=== PATIENT | male | born 1945 | race Caucasian/White ===

== ENCOUNTER 2019-07-27 06:59 | Outpatient (CLI) | payer MEDICARE, SELFPAY ==
--- NOTE | 2019-07-27 09:15 | DI.NM_ITS ---
APPROVED REPORT Exam: Pharmacologic Patient Location: Out-Patient Room/Bed: Stress Nurse: Ebony Harris RN BMI: 28.18 Indications: Patient unable to state why he is here for stress test today?my doctor told me to?? ?. Patient???s order reads NSTEMI and CHF as reason for exam. Of note patient has recently been in [facility] for approximately 8 days for pneumonia. Patient is a poor historian. Medical History Cardiac Medications: Aspirin, Atorvastatin, Metoprolol Tartrate. Allergies: No known drug allergies Cardiac Risk Factors: HTN, Hyperlipidemia,, Diabetes (insulin) Previous Cardiac Procedures: None Exercise History: Sedentary Physical Disabilities: Legs, Back Lung Sounds: Crackles in bases bilaterally and patient reports SOB. Heart Sounds: Regular Stress Test Details Test: Pharmacologic stress testing performed using 0.4 mg of regadenoson per 5 mL given IV over 10 s econds. Reason for pharmacologic stress test: physical limitation. Nuclear Acquisition: Stress Tc-99m/Stress Tc-99m 1 day Rest Isotope: Tc-99m Sestamibi. Dose: 11.0 Date: 07/27/2019 Injection Time: 0845 Stress Isotope: Tc-99m Sestamibi. Dose: 34.0 Date: 07/27/2019 Injection Time: 1012 HR Resting HR Supine: 106 bpm Max Heart Rate (APMHR): 145 bpm Target HR (85% APMHR): 123 bpm Max HR Achieved: 129 bpm % of APMHR: 88 BP Resting BP Supine: 134/88 mmHg Max BP: 134/88 mmHg ECG Resting ECG: Sinus Tachycardia Ectopy: none Comment: T wave flattening and inversions in the anterolateral leads. Stress ECG: Sinus Tachycardia ST Change: Normal Maximum ST Deviation: 1 mm Arrhythmia: Recurrent PVCs, bigeminy Recovery ECG: Sinus Rhythm Recovery ST Change: Normal Recovery Arrhythmia: VPC Clinical Stress Symptoms: Patient denied symptoms pre and post Lexiscan injection. Stress ECG Conclusion 1. The patient developed frequent PVCs and bigeminy which lasted into recovery. 2. ECG was nondiagnostic as there were T wave inversions at baseline. Protocol Used: Regadenoson Stress Test Summary STAGE HR BP Symptoms NOTES Supine 106 134/88 1 min post Lexiscan injection 114 110/40 3 min post Lexiscan injection 117 102/50 6 min post Lexiscan injection 121 106/50 9 min post Lexiscan injection 124 104/60 12 min post Lexiscan injection 122 100/60 15 min post Lexiscan injection 117 110/50 MPI Conclusion This MPI test was nondiagnostic as patient was unable to complete stress imaging. Rest imaging showed no evidence of infarct. Radiologist Interpretation Radiologist Interpretation by: Sudarshan Rodriguez MD Interpretation Date/Time: 07/27/2019 15:24:49
[2019-07-27] MEDS: Regadenoson 0.4 MG/5 ML SYR IVP (10:46)
== END 2019-07-27 07:19 ==
PROVIDERS: PCP Internal Medicine; Visit Provider Family Medicine
DX: R07.9 Chest pain, unspecified (principal); I25.2 Old myocardial infarction; I50.9 Heart failure, unspecified; I49.3 Ventricular premature depolarization; I10 Essential (primary) hypertension; E78.5 Hyperlipidemia, unspecified
CPT/HCPCS: 93016; 93018; 78451; 93017; J2785

== ENCOUNTER 2023-03-05 12:55 | Day surgery (SDC) | payer MEDICARE, SELFPAY ==
[2023-03-05 13:22] VITALS: BP 136/40; PULSE 66; RESP 16; TEMP 36.8; O2SAT 98
[2023-03-05] MEDS: Tropicam./Phenyleph. (1/2.5%) 5 ML BTL OS ×3 (13:29→13:45)
--- NOTE | 2023-03-05 13:30 | W.ANESPRE ---
General Info Date of Service Date Performed: 03/05/23 Height: 5 ft 7 in Weight: 82.554 kg Body Mass Index (BMI): 28.5 Surgical Procedure: Operation Date: 03/05/23 14:25 Proposed Procedure Side Surgeon p Cataract Extraction with IOL Implant Left Toni Staton MD Meds Allergies and Home Medications Allergies Allergy/AdvReac Type Severity Reaction Status Date / Time bee venom protein (honey bee) Allergy Intermediate Swelling/Ed Verified 03/05/23 13:19 karena acetaminophen [From Percocet] AdvReac Intermediate Nausea Verified 03/05/23 13:19 oxycodone [From Percocet] AdvReac Intermediate Nausea Verified 03/05/23 13:19 Home Medication Medication Instructions Recorded acetaminophen 325 mg tablet 325 mg PO Q6H 03/03/23 apixaban 5 mg tablet (Eliquis) 5 mg PO DAILY 03/03/23 gabapentin 400 mg capsule 400 mg PO BID 03/03/23 hydromorphone 2 mg tablet 2 mg PO Q6H 03/03/23 metformin 500 mg tablet,extended 1,000 mg PO BID 03/03/23 release 24 hr metoprolol succinate 50 mg 50 mg PO DAILY 03/03/23 tablet,extended release 24 hr rosuvastatin 20 mg tablet 20 mg PO HS 03/03/23 spironolactone 25 mg tablet 25 mg PO BID 03/03/23 tramadol 50 mg tablet 50 mg PO Q6H PRN 03/03/23 Current Visit Medications: Current Medications Generic Name Dose Route Start Last Admin Trade Name Freq PRN Reason Stop Dose Admin Acetaminophen 1,000 mg 03/05/23 06:00 Acetaminophen 500 Mg Tab PO 04/04/23 05:59 Q4H PRN PRN Balanced Salt Solution 500 ml 03/05/23 06:00 Balanced Salt Soln.-Plus 500 Ml Bag OP 04/04/23 05:59 DIRECTED REE Miscellaneous Medication 0 ml 03/05/23 06:00 Prednisolone 1%, Moxifloxacin 0.5%, Nepafenac 0.1% 5ml Btl OS 04/04/23 05:59 DIRECTED REE Miscellaneous Medication 0 ml 03/05/23 06:00 03/05/23 13:29 Tropicam./Phenyleph. (1/2.5%) 5 Ml Btl OS 04/04/23 05:59 1 drp DIRECTED REE Administration Tetracaine HCl 0 ml 03/05/23 06:00 Tetracaine 0.5% 4 Ml Btl OS 04/04/23 05:59 DIRECTED [facility] PFSH Active Problems Active Problems: Problem Status Onset Code Combined form of age-related cataract, left eye H25.812 Medical History Medical History Amputated toe Bacteremia Chronic anemia Critical lower limb ischemia CTS (carpal tunnel syndrome) Diabetes mellitus Heart failure with normal ejection fraction Hypertension Iron deficiency anemia GENI (obstructive sleep apnea) Pain of right lower extremity Peripheral arterial occlusive disease Pneumonia Pulmonary HTN Pure hyperglyceridemia Spinal stenosis of lumbar region Surgical History Surgical History (Updated 03/03/23 @ 12:44 by Gil Ding) History of laminectomy History of thoracentesis Hx of angioplasty Pt. states he has a stent in his legto restore blood flow to his right foot. Hx of cardiac catheterization 12/23/17 Hx of foot surgery Pt. states no toes on right foot Repair of umbilical hernia Tobacco Smoking/Tobacco Use Status: Never Alcohol Alcohol Intake: current Alcohol intake frequency: a few times a month Alcohol type: beer Substance Use Substance use: Never Substance use type: does not use Vital Signs and Lab Results Vital Signs Most Recent Vital Signs in EMR: Most Recent Vital Signs Temp Pulse Resp BP Pulse Ox 36.8 C 66 16 136/40 L 98 03/05/23 13:22 03/05/23 13:22 03/05/23 13:22 03/05/23 13:22 03/05/23 13:22 Point of Care Results Point of Care Results: Finger Stick Blood Glucose 101 03/05/23 13:16 Lab Results Blood Type / Crossmatch: No Data to Display Complete Blood Count: No Data to Display Complete Metabolic Panel: No Data to Display Liver Function Panel: No Data to Display Coagulation Panel: No Data to Display Cardiac Panel: No Data to Display Arterial Blood Gas: No Data to Display Venous Blood Gas: No Data to Display Pancreas Panel: No Data to Display Thyroid Panel: No Data to Display Infectious Disease: No Data to Display Blood Cultures: No Data to Display Toxicology Panel: No Data to Display Imaging and Studies Imaging and Studies Study information below may be from another EMR and interpreted by another provider. Please see original notes in EMR for more complete details. Stress Test Summary: ECG Resting ECG: Sinus Tachycardia Ectopy: none Comment: T wave flattening and inversions in the anterolateral leads. Stress ECG: Sinus Tachycardia ST Change: Normal Maximum ST Deviation: 1 mm Arrhythmia: Recurrent PVCs, bigeminy Recovery ECG: Sinus Rhythm Recovery ST Change: Normal Recovery Arrhythmia: VPC Clinical Stress Symptoms: Patient denied symptoms pre and post Lexiscan injection. Stress ECG Conclusion 1. The patient developed frequent PVCs and bigeminy which lasted into recovery. 2. ECG was nondiagnostic as there were T wave inversions at baseline. Protocol Used: Regadenoson Stress Test Summary STAGEHRBPSymptomsNOTES [id number] 1 min post Lexiscan [id number] 3 min post Lexiscan [id number]/50 6 min post Lexiscan [id number]/50 9 min post Lexiscan [id number]/60 12 min post Lexiscan [id number]/60 15 min post Lexiscan [id number]/50 MPI Conclusion This MPI test was nondiagnostic as patient was unable to complete stress imaging. Rest imaging showed no evidence of infarct. Radiologist Interpretation Radiologist Interpretation by: Sudarshan Rodriguez MD Interpretation Date/Time: 07/27/2019 15:24:49 ECG Resting ECG: Sinus Tachycardia Ectopy: none Comment: T wave flattening and inversions in the anterolateral leads. Stress ECG: Sinus Tachycardia ST Change: Normal Maximum ST Deviation: 1 mm Arrhythmia: Recurrent PVCs, bigeminy Recovery ECG: Sinus Rhythm Recovery ST Change: Normal Recovery Arrhythmia: VPC Clinical Stress Symptoms: Patient denied symptoms pre and post Lexiscan injection. Stress ECG Conclusion 1. The patient developed frequent PVCs and bigeminy which lasted into recovery. 2. ECG was nondiagnostic as there were T wave inversions at baseline. Protocol Used: Regadenoson Stress Test Summary STAGEHRBPSymptomsNOTES [id number]/88 1 min post Lexiscan [id number]/40 3 min post Lexiscan [id number]/50 6 min post Lexiscan [id number]/50 9 min post Lexiscan [id number]/60 12 min post Lexiscan [id number] 15 min post Lexiscan [id number]/50 MPI Conclusion This MPI test was nondiagnostic as patient was unable to complete stress imaging. Rest imaging showed no evidence of infarct. Radiologist Interpretation Radiologist Interpretation by: Sudarshan Rodriguez MD Interpretation Date/Time: 07/27/2019 15:24:49 Anesthesia Assessment and Plan Anesthesia History Personal History: No History of Anesthesia Complications Family History: No Family History of Anesthesia Complications Exercise Tolerance Exercise Tolerance: Metabolic Equivalents<4 Pertinent Negatives Pertinent Negatives: No Symptoms of GERD Cardiac & Pulmonary Exam Cardiac Exam: Normal S1/S2 Heart Sounds Pulmonary Exam: Clear Bilateral Breath Sounds Implantable Cardiac Device Does patient have a Pacemaker or an ICD?: No Airway Exam Known Difficult Airway: No Mallampati Class: 2 Mouth Opening: Normal (> 3cm) Thyromental Distance: Greater than 3 cm Neck Range of Motion: Full ROM Neck Circumference: Normal Teeth Condition: Generalized Poor Dentition and Removable Dentures/Plates Upper ASA Classification ASA Score: ASA 3 Emergency Case?: No NPO Status NPO Status: NPO Clears >2 hours, Solids >8 hours Anesthesia Plan Resuscitation Status: Full Code Anesthesia Technique: MAC Anesthesia Airway Planned: Natural Airway Monitors Used: Standard Monitors Preoperative Comments:: Is ok with no MKO
[2023-03-05 13:41] VITALS: BMI 28.5
[2023-03-05] MEDS: Balanced Salt Soln.-PLUS 500 ML BAG OP (14:29)
[2023-03-05] MEDS: Lidocaine 1% Pres-Free 5 ML VIAL (14:30)
[2023-03-05] MEDS: Tetracaine 0.5% 4 ML BTL OS (14:30)
[2023-03-05] MEDS: Phenylephrine/Lidocaine (15/10) MG/ML 1 ML VIAL (14:32)
[2023-03-05] MEDS: Duovisc Viscoelastic System EACH 1 EACH (14:32)
[2023-03-05] MEDS: Povidone-Iodine Ophth 30 ML BTL (14:33)
[2023-03-05] MEDS: Trypan Blue 0.06% 0.5 ML SYR (14:34)
[2023-03-05 15:00] VITALS: BP 102/53; PULSE 62; RESP 16; TEMP 36.2; O2SAT 98
--- NOTE | 2023-03-05 15:01 | W.PM.DSUDISC ---
Date of service: 03/05/23 Time of Service: 15:01 Discharge Plan Disposition Patient Disposition: Home Discharge Details Attending Provider: Toni Staton Primary Care Provider: Leanna Ricketts Home Meds and New Rx's Prescriptions: No Action acetaminophen 325 mg Tablet 325 mg PO Q6H gabapentin 400 mg capsule 400 mg PO BID Patient Comments: TAKE ONE CAPSULE BY MOUTH TWICE A DAY hydromorphone 2 mg tablet 2 mg PO Q6H Patient Comments: TAKE ONE TABLET BY MOUTH EVERY 6 HOURS NEEDED FOR PAIN metformin 500 mg tablet extended release 24 hr 1,000 mg PO BID Patient Comments: TAKE TWO TABLETS BY MOUTH TWICE A DAY Eliquis 5 mg Tablet 5 mg PO DAILY metoprolol succinate 50 mg tablet extended release 24 hr 50 mg PO DAILY Patient Comments: TAKE ONE TABLET BY MOUTH EVERY DAY tramadol 50 mg Tablet 50 mg PO Q6H PRN spironolactone 25 mg tablet 25 mg PO BID Patient Comments: TAKE ONE TABLET BY MOUTH TWICE A DAY rosuvastatin 20 mg tablet 20 mg PO HS Patient Comments: TAKE ONE TABLET BY MOUTH EVERY DAY Discharge Instructions Stand Alone Forms: Post-op Topical Cataract, Rigoberto Rain (DSU) Discharge Orders Discharge Orders: Discharge Order (Routine); Ordered 03/05/23 Ordered By: Toni Staton DS: Diagnosis Discharge Diagnosis (1) Combined form of age-related cataract, left eye: Status: Resolved
--- NOTE | 2023-03-05 15:01 | W.PM.OP ---
Date of service: 03/05/23 Time of Service: 15:01 Operative Note Operative Note DATE OF PROCEDURE: 03/05/23 PRE-OP DIAGNOSIS: Dense nuclear/cortical/posterior subcapsular cataract, mature cataract, left eye Absent red reflex, left eye POST-OP DIAGNOSIS: same PROCEDURE: Cataract extraction using phacoemulsification with intraocular lens implant, left eye SURGEON: Toni Staton ANESTHESIA TYPE: Local By Surgeon and MAC Refer to Anesthesia Record PATHOLOGY: none sent COMPLICATIONS: None Patient was transported to: same day Patient's condition: stable Implants: Bharathi Clareon [id number] Indications: Progressive decreased vision due to cataract, left eye Procedure Description: CATARACT SURGERY OPERATIVE REPORT PREOPERATIVE DIAGNOSIS: Dense, mature, nuclear/cortical/posterior subcapsular cataract, left eye Absent red reflex, left eye POSTOPERATIVE DIAGNOSIS: Same OPERATION: Cataract extraction using phacoemulsification with posterior chamber intraocular lens implant, left eye. Capsular staining with VisionBlue IOL: IOL Drilling Rig Operator/Model: Bharathi Clareon [id number] IOL Power: + 24.0 diopters IOL Serial Number: [id number] Optic Diameter: 6.0mm Haptic/Overall Diameter: 13.0mm PHACO INFO: Bharathi elmenusurion Vision System with OZil and Active Fluidics Cumulative Dispersed Energy (CDE): 58.18 seconds SURGEON: Toni Staton MD, PADMINI ANESTHESIA: Monitored Anesthesia Care (MAC), with local sub-tenon's anesthetic infiltration COMPLICATIONS: None SPECIMENS: None INDICATIONS FOR PROCEDURE: The patient is a 77-year-old male with history of diminished visual acuity in his left eye secondary to the development of a dense nuclear/cortical/posterior subcapsular cataract in the left eye, essentially a mature cataract. Visual acuity is hand motions, and there is no view of the retina due to his dense cataract. He has previously undergone cataract surgery in the right eye many years ago. See office notes for detailed information. PROCEDURE: The correct surgical eye was identified and marked as the left eye and the pupil was dilated in the preoperative area using mydriatics and cycloplegics. The dilated pupil size was 5.0 mm. The patient elected to proceed without oral sedation. The patient was brought to the operating room where cardiopulmonary monitoring was instituted and surgical time-out was performed, confirming the correct operative eye and IOL power. Topical anesthesia was administered and ophthalmic povidone-iodine 5% was instilled into the conjunctival fornices. The dorothy-ocular area was prepped with Betadine 10% solution and draped in the usual sterile fashion for intraocular surgery, including an aperture drape. A Tegaderm transparent film dressing was cut in half and used to cover the lashes and lid margins. Care was taken to sequester the lashes and lid margins under the Tegaderm dressing. A lid speculum was placed between the lids of the operative eye and the Bharathi LuxOR Revalia operating microscope was maneuvered into position. Karlene scissors were then used to make a conjunctival buttonhole approximately 6mm posterior to the limbus in the inferonasal quadrant. Blunt dissection was carried out to expose bare sclera, and a blunt-tipped sub-tenon?s anesthesia cannula was introduced and passed posteriorly along the globe where non-preserved plain lidocaine was injected into posterior sub-Tenon?s space. A sideport knife was used to make a paracentesis port. VisionBlue was injected into the anterior chamber and allowed to sit for 30 seconds. Intraocular phenylephrine/lidocaine was injected into the anterior chamber. The anterior chamber was then filled with viscoelastic. Viscoat was used to achieve a pupillary dilation of approximately 6 mm. A keratome knife was used construct a two-plane clear corneal tunnel extending 2.0mm into clear cornea. A flap was raised on the anterior capsule and capsulorhexis forceps were used to complete a continuous curvilinear capsulorhexis of 5.0 mm. Balanced salt solution was then used to perform cortical cleaving hydrodissection and nuclear hydrodelineation until the lens could be freely rotated within the capsular bag. The lens nucleus was then disassembled and removed within the capsular bag and iris plane using phacoemulsification. A deep trench was sculpted into the central nucleus, which was then rotated 180 degrees and the trench lengthened. Additional dispersive viscoelastic was injected into the anterior chamber and nuclear splitters were used to crack the nucleus into 2 halves. There was a dense leathery posterior plate which required additional sculpting in order to crack. Each Artur nucleus was then sculpted and cracked into quadrants. A bimanual technique had to be used to separate the leathery posterior nuclear plate. Dispersive viscoelastic was injected intermittently to protect the corneal endothelium. Residual cortical material was removed using the irrigation/aspiration handpiece. There was very little cortex remaining. The capsular bag was then inflated and the anterior chamber deepened with viscoelastic. The lens implant described above was inserted into the capsular bag using the Bharathi Autonome Injector. A Kuglen hook was used to dial the IOL into position. Residual viscoelastic was then removed first from posterior to the IOL, then from the anterior chamber using the I/A handpiece. The lens implant was noted to center nicely within the capsular bag. The incisions were stromally hydrated, and the anterior chamber was reformed using BSS. Then 0.5cc of moxifloxacin 1.0mg/ml were injected into the capsular bag and anterior chamber. The incisions were checked with a Weck spear and found to be secure. Several drops of ophthalmic povidone-iodine 5% were then applied to the eye followed by two drops of Imprimis combination prednisolone/moxifloxacin/nepafenac solution. The drapes were removed and a clear plastic protective eye shield was placed over the eye. The patient was then returned to Same Day Surgery in stable condition.
--- NOTE | 2023-03-05 15:15 | W.ANESPOSTOP ---
Postoperative Evaluation Date, Time and Location Date Performed: 03/05/23 Time Performed: 15:15 Patient Location: Day Surgery Unit Vital Signs Most Recent Imported Vital Signs: Most Recent Vital Signs Temp Pulse Resp BP Pulse Ox 36.2 C L 62 16 102/53 L 98 03/05/23 15:00 03/05/23 15:00 03/05/23 15:00 03/05/23 15:00 03/05/23 15:00 Pain Score Most Recent Pain Score: Most Recent Pain Score Pain Level 0 03/05/23 15:00 Assessment Mental Status: Awake (Alert & Oriented to Patient Baseline) Airway and Respiratory Function: Patent airway with normal (patient baseline) respiratory exam Cardiovascular Function: Hemodynamically Stable Hydration Status: Adequately Hydrated Nausea & Vomiting: No Nausea or Vomiting Pain: Pt. Denies Any Pain Peripheral Nerve Block: Patient did not receive a nerve block
== END 2023-03-05 15:30 | disposition home or self-care (01) ==
LOC: SUR 12:58
PROVIDERS: PCP Internal Medicine; Visit Provider Ophthalmology
PROC: (CPT 66984; principal; 2023-03-05 14:15)
DX: H25.812 Combined forms of age-related cataract, left eye (principal); I10 Essential (primary) hypertension; G47.33 Obstructive sleep apnea (adult) (pediatric); Z98.41 Cataract extraction status, right eye
CPT/HCPCS: 66984; V2632